=== PATIENT | female | born 1995 | race Caucasian/White ===

== ENCOUNTER 2018-01-20 10:28 | Outpatient (CLI) | payer BC ==
--- NOTE | 2018-01-20 13:22 | RAD ---
LUMBOSACRAL SPINE FOUR VIEWS: HISTORY: Spondylolisthesis of the lumbar region. COMPARISON: None. TECHNIQUE: AP, lateral, flexion, and extension views of the lumbosacral spine were performed. FINDINGS: Vertebral bodies and intervertebral disks demonstrate normal height and alignment without fracture or subluxation. No degenerative changes are seen. No change in alignment is seen with flexion and ext ension. IMPRESSION: No significant lumbar spine abnormality. POS: [facility]
== END 2018-01-20 10:29 | disposition home or self-care (01) ==
LOC: RAD 10:28
PROVIDERS: ATTEND Specialist
DX: M43.16 Spondylolisthesis, lumbar region (principal)
CPT/HCPCS: 72120